=== PATIENT | female | born 1960 | race Caucasian/White ===

== ENCOUNTER → 2017-07-25 | Outpatient (CLI) | payer OTHER ==
[~2017-07-25] MED LIST: ALBU1AER9 INH; ASPI81TA28 PO; AZAT50TA17 PO; AZEL0.055 OPB; BUPR-102 PO; CETI10TA84 PO; LISI-461 PO; LORA-741 PO; MOME200A INH; MONT1TAB3 PO; NTRGSL4 SL; PLV75 PO; PRLSR20 PO; PRVC/40 PO; TPRSR50 PO
[2017-07-25 17:36] LABS: BLOOD UREA NITROGEN 20 mg/dl (7-18); BUN/CREATININE RATIO 22.2 (10-20); CALCIUM 8.9 mg/dl (8.5-10.1); CARBON DIOXIDE 29 mmol/L (21-32); CHLORIDE 109 mmol/L (98-107); CREATININE 0.92 mg/dl (0.60-1.20); GLUCOSE 114 mg/dl (70-99); POTASSIUM 4.5 mmol/L (3.5-5.1); SODIUM 142 mmol/L (136-145)
[2017-07-25 17:39] LABS: CHOLESTEROL 207 mg/dl (0-200); CHOLESTEROL/HDL RATIO 4.8; HDL CHOLESTEROL 43 mg/dl; LDL CHOLESTEROL CALCULATED 86 mg/dl; TRIGLYCERIDES 391 mg/dl (0-150); VERY LOW DENSITY LIPOPROT CALC 78 mg/dl
== END | disposition home or self-care (01) ==
LOC: C.LABPVFM 15:59
PROVIDERS: ATTEND Nurse Practitioner
DX: I10 Essential (primary) hypertension (principal); E78.5 Hyperlipidemia, unspecified; E55.9 Vitamin D deficiency, unspecified

== ENCOUNTER → 2017-09-11 | Outpatient (CLI) | payer OTHER ==
[~2017-09-11] MED LIST changes: +OPTIRAY 320 IV PRN
--- NOTE | 2017-09-11 13:14 | DIAGNOSTIC IMAGING REPORT ---
CT OF THE CHEST WITH IV CONTRAST CLINICAL HISTORY: J45.909 FnehhsS51.200 Nicotine puukzpwvcvG97.09 MEJIA (dyspnea on exertion COMPARISON STUDY: 04/10/2015 TECHNIQUE: Following the IV administration of 93 mL of Optiray-320, CT of the thorax was performed from the thoracic inlet to the lung bases. Images are reviewed in the axial, sagittal, and coronal planes. IV contrast was administered without complication. A dose lowering technique was utilized adhering to the principles of ALARA. CT DOSE: 973.07 mGy.cm FINDINGS: Thyroid: Imaged portions of the thyroid gland are normal in appearance. Thoracic aorta: The thoracic aorta is normal in course and caliber, noting standard 3-vessel arch anatomy. No aneurysm or dissection is seen. Pulmonary vasculature: The pulmonary trunk is normal in caliber. There are no central filling defects identified to suggest pulmonary embolus. Note that this examination was not protocoled for the evaluation of pulmonary emboli. HEART: The heart is normal in size and configuration, without pericardial effusion. Lungs and pleural spaces: No pleural effusions are visualized. There is no focal pulmonary consolidation. There is linear scar/atelectasis within the right middle lobe and lingula. Mediastinum: There is no mediastinal lymphadenopathy. Elizabeth: There is no evidence of pathologic hilar adenopathy Axilla: There is no evidence of pathologic adenopathy Upper abdomen: There is hepatic steatosis. Hypodense hepatic lesions remain unchanged the prior study and likely represent cysts Skeletal structures: There are no lytic or blastic osseous lesions. IMPRESSION: 1. No acute intrathoracic findings 2. No evidence of focal pulmonary consolidation 3. No evidence of pathologic adenopathy Electronically signed by: Tejas Cartwright M.D. 09/11/2017 1:12 PM Dictated Date/Time: 09/11/2017 1:09 PM
== END | disposition home or self-care (01) ==
LOC: C.CTS 12:34
PROVIDERS: ATTEND Internal Medicine Pulmonary Disease
DX: J45.909 Unspecified asthma, uncomplicated (principal); F17.200 Nicotine dependence, unspecified, uncomplicated

== ENCOUNTER → 2017-12-23 | Outpatient (CLI) | payer OTHER ==
[~2017-12-23] MED LIST changes: -OPTIRAY 320 IV PRN
[2017-12-23 17:48] LABS: BLOOD UREA NITROGEN 12 mg/dl (7-18); CALCIUM 9.2 mg/dl (8.5-10.1); CARBON DIOXIDE 28 mmol/L (21-32); CREATININE 0.98 mg/dl (0.60-1.20); GLUCOSE 131 mg/dl (70-99); SODIUM 136 mmol/L (136-145)
== END | disposition home or self-care (01) ==
LOC: C.LABPVFM 13:39
PROVIDERS: ATTEND Nurse Practitioner
DX: I10 Essential (primary) hypertension (principal); E55.9 Vitamin D deficiency, unspecified

== ENCOUNTER → 2018-01-13 | Outpatient (CLI) | payer OTHER ==
--- NOTE | 2018-01-13 09:27 | DIAGNOSTIC IMAGING REPORT ---
RIGHT HIP 2 VIEWS HISTORY: M25.551 Pain in right hip COMPARISON: None. FINDINGS: There is no fracture or dislocation. Soft tissues are unremarkable. Cartilage spaces are maintained for age. The visualized pelvic bones are intact. Surgical clips within the right lower quadrant. IMPRESSION: No significant abnormality within the right hip. Electronically signed by: Simeon Hurt M.D. 01/13/2018 9:26 AM Dictated Date/Time: 01/13/2018 9:23 AM
--- NOTE | 2018-01-13 09:32 | DIAGNOSTIC IMAGING REPORT ---
R HAND MIN 3 VIEWS ROUTINE CLINICAL HISTORY: Arthralgia of multiple site. COMPARISON: Right fourth finger radiographs August 06, 2014. FINDINGS: Cortical irregularity with a well-defined lucency within the distal tuft of the distal phalanx of the right fourth finger reflects a healed fracture. No acute fracture is present. No erosions are identified. There is mild joint space narrowing with osteophytosis of multiple DIP joints within the right hand. IMPRESSION: 1. 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 2. No radiographic evidence of an erosive/inflammatory arthropathy. Electronically signed by: Shaun Dash M.D. 01/13/2018 9:30 AM Dictated Date/Time: 01/13/2018 9:28 AM
[2018-01-13 10:34] LABS: TRANSFERRIN 282 mg/dl (200-360)
[2018-01-17 14:38] LABS: ANA SCREEN TC 249X NEGATIVE (NEGATIVE); ANTI-SS-A <1.0 NEG AI (<1.0 NEG); ANTI-SS-B <1.0 NEG AI (<1.0 NEG); COMPLEMENT C3 TC 44859W 151 MG/DL (90-180); COMPLEMENT C4 TC 44982E 25 MG/DL (16-47)
== END | disposition home or self-care (01) ==
LOC: C.RAD1850 08:47
PROVIDERS: ATTEND Internal Medicine Rheumatology
DX: M19.041 Primary osteoarthritis, right hand (principal); M25.551 Pain in right hip; E61.8 Deficiency of other specified nutrient elements